=== PATIENT | female | born 1970 | race Two or more races ===

== ENCOUNTER 2017-04-28 21:21 | Emergency (ER) | payer OTHER ==
[2017-04-28 21:28] VITALS: O2SAT 94
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
[2017-04-28] MEDS ORDERED: IBUPROFEN 800 MG TAB PO ONE (23:01)
[2017-04-28 23:28] VITALS: BP 96/73; PULSE 87; RESP 18; TEMP 99.5
== END 2017-04-28 23:27 | disposition home or self-care (01) ==
DX: S09.90XA Unspecified injury of head, initial encounter (principal); F17.200 Nicotine dependence, unspecified, uncomplicated; W18.09XA Striking against other object with subsequent fall, initial encounter; Y92.69 Other specified industrial and construction area as the place of occurrence of the external cause; Y99.0 Civilian activity done for income or pay; Y93.89 Activity, other specified